=== PATIENT | female | born 1950 | race Caucasian/White ===

== ENCOUNTER → 2018-02-21 | Outpatient (CLI) | payer MEDICARE, OTHER ==
--- NOTE | 2018-02-21 17:51 | RAD ---
Chest, 2 views, 02/21/2018: HISTORY: Dyspnea The heart size and pulmonary vascularity are normal. No pulmonary infiltrate is seen. There is no evidence of pleural fluid. Mild spurring is present in the spine. IMPRESSION: No acute cardiopulmonary abnormality is detected. Electronically signed by: Emiliano Marquez MD (02/21/2018 5:48 PM) [facility]
== END | disposition home or self-care (01) ==
LOC: RAD 11:40
PROVIDERS: ATTEND Family Medicine
DX: R06.00 Dyspnea, unspecified (principal); M46.04 Spinal enthesopathy, thoracic region
CPT/HCPCS: 71046

== ENCOUNTER → 2018-02-22 | Outpatient (CLI) | payer MEDICARE, OTHER ==
[~2018-02-22] MED LIST: BARIUM SULFATE 60% 355 ML SUSP PO ONE; BARIUM SULFATE 98% 135 ML SUSP PO ONE
--- NOTE | 2018-02-22 17:56 | RAD ---
Double contrast upper GI study 02/22/2018 CLINICAL HISTORY: History of hernia repair. Reflux. TECHNIQUE: A double contrast upper GI study was performed under fluoroscopic control. The total fluoroscopic time for this study is 2.5 minutes. 10 digital spot radiographs were obtained. FINDINGS: An AP digital radiograph of the abdomen was obtained as a teaching artist. This demonstrated surgical clips within the right upper quadrant abdomen consistent with a cholecystectomy. The abdominal bowel gas pattern is nonobstructive. No radiopaque calculus is seen. A moderate amount stool is seen throughout the colon. Mild S-shaped curvature of the thoracolumbar spine is seen. Degenerative changes are seen involving the lower thoracic and throughout the lumbar spine. The mucosal pattern of the esophagus, stomach and duodenum is within normal limits. Tertiary contractions of esophagus are seen consistent with mild esophageal dysmotility. The patient is post what appears to be a Kimberlee fundoplication. A small recurrent sliding hiatal hernia is seen. No significant reflux is noted. Incidental note is made of a 1 to 2 cm diverticulum involving the lateral aspect of the second portion of the duodenum. No area of ulceration is seen. IMPRESSION: 1. Mild esophageal dysmotility. 2. Small recurrent sliding hiatal hernia. Electronically signed by: Matt Krishnamurthy MD (02/22/2018 5:53 PM) [id number]
== END | disposition home or self-care (01) ==
LOC: DXRAD 08:09
PROVIDERS: ATTEND Family Medicine
DX: K44.9 Diaphragmatic hernia without obstruction or gangrene (principal); K22.4 Dyskinesia of esophagus; M51.36 Other intervertebral disc degeneration, lumbar region; M51.34 Other intervertebral disc degeneration, thoracic region
CPT/HCPCS: 74241

== ENCOUNTER → 2019-07-02 | Outpatient (CLI) | payer MEDICARE, OTHER ==
--- NOTE | 2019-07-02 10:17 | RAD ---
CT HEAD WO CONTRAST Date: 07/02/2019 10:00 AM Clinical Indication: Syncope, dizziness, falls, balance issues Comparison: None. Technique: 5 mm axial tomographic images were obtained of the head without contrast. These were viewed on brain and bone windows. One or more of the following dose reduction techniques were utilized: Automated exposure control (AEC), Adjustment of mA and/or kV according to patient size, Use of iterative reconstruction technique such as ASiR, CT scan done according to ALARA and image gently/image wisely Findings: The brain parenchyma is normal in attenuation. No intra- or extra-axial mass or fluid collection. No acute hemorrhage. The ventricles are normal in size, shape, and morphology. The mills-white matter junction is normal. The subarachnoid cisterns are patent. The visualized paranasal sinuses are normal. The visualized portions of the orbits and globes are normal. The mastoid air cells are clear. The asian studies professor topogram shows no lytic lesion or fracture. Impression: No acute intracranial process. Electronically signed by: Chevy Lucas MD (07/02/2019 10:14 AM) [id number]
--- NOTE | 2019-07-09 13:09 | RAD ---
BILATERAL SCREENING MAMMOGRAM, 3-D History: Routine screening. Comparison: 10/06/2011, is 12/13/2014, 01/24/2018 Technique: MLO and CC digital tomosynthesis (3D) images obtained. Radiologist reviewed these images on dedicated workstation. Findings: Breast Tissue Density C : The breasts are heterogeneously dense, which may obscure small masses. There are no dominant masses, suspicious microcalcifications, or architectural distortion. Asymmetry involving the anterior left retroareolar MLO images present. This probably represents summation of breast parenchyma. IMPRESSION: Spot compression imaging of the left MLO anterior retroareolar region is recommended. Ultrasound may be needed. BI-RADS Category 0: Incomplete: Need additional imaging evaluation. The images were reviewed with computer-aided detection. Patient information is entered into reminder system with a target due date for the next screening mammogram. Mammography is the most sensitive method for finding small breast cancers, but it does not detect them all and is not a substitute for careful clinical examination. A negative mammogram does not negate a clinically suspicious finding and should not result in delay in biopsying a clinically suspicious abnormality. "Our facility is accredited by the [employer] Mammography Program." Electronically signed by: Sameer Nelson MD (07/09/2019 1:06 PM) [id number]
== END | disposition home or self-care (01) ==
LOC: CT 09:44
PROVIDERS: ATTEND Family Medicine
DX: Z12.31 Encounter for screening mammogram for malignant neoplasm of breast (principal); R55 Syncope and collapse
CPT/HCPCS: 70450; 77063; 77067